=== PATIENT | female | born 1970 | race Caucasian/White ===

== ENCOUNTER 2018-11-20 09:14 | Emergency (ER) | payer BC ==
[2018-11-20 10:12] LABS: ADD MAN DIFF? NO
[2018-11-20 10:17] LABS: WHITE BLOOD COUNT 8.7 10^3/ul (4.8-10.8)
[2018-11-20 10:17] LABS: BASOPHILS % 0.5 % (0.0-2.0); EOSINOPHILS # 0.1 10^3/ul (0.0-0.5); EOSINOPHILS % 1.6 % (0.0-7.0); HEMATOCRIT 37.1 % (37.0-47.0); HEMOGLOBIN 12.4 g/dl (12.0-16.0); LYMPHOCYTES # 2.4 10^3/ul (0.8-2.9); LYMPHOCYTES % 27.1 % (15.0-51.0); MEAN CORPUSCULAR HEMOGLOBIN 31.8 pg (29.0-33.0); MEAN CORPUSCULAR HGB CONC 33.4 g/dl (32.0-37.0); MEAN CORPUSCULAR VOLUME 95.1 fl (82.0-101.0); MEAN PLATELET VOLUME 10.4 fl (7.4-10.4); MONOCYTE # 0.8 10^3/ul (0.3-0.9); MONOCYTES % 8.6 % (0.0-11.0); NEUTROPHIL # 5.4 10^3/ul (1.6-7.5); NEUTROPHILS % 61.6 % (39.0-77.0); PLATELET COUNT 252 10^3/UL (140-415); RED CELL DISTRIBUTION WIDTH 12.4 % (11.5-14.5)
[2018-11-20 10:37] LABS: INR 0.91; PROTIME 12.4 Sec (11.9-14.9)
[2018-11-20 10:38] LABS: PARTIAL THROMBOPLASTIN TIME 28.1 Sec (23.0-35.0)
[2018-11-20 10:40] LABS: ALANINE AMINOTRANSFERASE 19 IU/L (13-69); ALBUMIN 4.2 g/dl (3.3-4.9); ALKALINE PHOSPHATASE 62 IU/L (42-121); ANION GAP 11 (5-13); ASPARTATE AMINO TRANSFERASE 21 IU/L (15-46); BILIRUBIN,INDIRECT 0.3 mg/dl (0-1.1); BILIRUBIN,TOTAL 0.3 mg/dl (0.2-1.3); BLOOD UREA NITROGEN 15 mg/dl (7-20); CALCIUM 9.4 mg/dl (8.4-10.2); CARBON DIOXIDE 23 mmol/L (21-31); CHLORIDE 106 mmol/L (97-110); CREATINE KINASE 96 IU/L (23-200); CREATININE 0.64 mg/dl (0.44-1.00); Estimated GFR > 60 mL/min (>60); GLUCOSE 102 mg/dl (70-220); SODIUM 140 mmol/L (135-144)
[2018-11-20 10:52] LABS: B-TYPE NATRIURETIC PEPTIDE 87 PG/ML (0-125); CK INDEX 0.6; CK-MB 0.55 ng/ml (0.0-2.4); TROPONIN-I < 0.012 ng/ml (0.000-0.120)
[2018-11-20] MEDS: SOD CHLORIDE 0.9% 100 ML (11:20)
[2018-11-20] MEDS: IOHEXOL 100 ML (11:20)
== END 2018-11-20 12:08 | disposition home or self-care (01) ==
LOC: E/R 12:08
DX: J43.9 Emphysema, unspecified (principal); I10 Essential (primary) hypertension; F17.210 Nicotine dependence, cigarettes, uncomplicated; F43.20 Adjustment disorder, unspecified
CPT/HCPCS: 71275; 80053; 82550; 82553; 83880; 84484; 85025; 85610; 85730; 93005; 99285-25